=== PATIENT | female | born 1985 | race African-American/Black ===

== ENCOUNTER 2021-05-07 07:42 | Emergency (ER) | payer MEDICAID ==
[~2021-05-07] VITALS: Ht 152.4 cm; Wt 65.0 kg
[2021-05-07 07:55] VITALS: BP 158/101
[2021-05-07] MEDS ORDERED: IV NORMAL SALINE 1000ML BAG 1,000 ML IV ONE (08:30)
--- NOTE | 2021-05-07 08:47 | PHYS DOC ---
Past Medical History Additional Past Medical Histor: PTSD, ADHD Past Surgical History: Other Additional Past Surgical Histo: denies General Adult EDM: Chief Complaint: COUGH HPI: HPI: 36-year-old female past medical history of ADHD and PTSD, presents to the ED with complaints of difficulties breathing, shortness of breath, body aches, fatigue, sore throat and cough, stating she was diagnosed with bronchitis at [facility] 5 days ago and is on antibiotics (cannot recall name). Patient is not a tobacco smoker. Review of Systems: Review of Systems: Constitutional: Denies fever or chills. [] Eyes: Denies change in visual acuity. [] HENT: Denies nasal congestion or rhinorrhea Respiratory: Denies hemoptysis or increased work of breathing Cardiovascular: Denies chest pain or edema. [] GI: Denies abdominal pain, nausea, vomiting, bloody stools or diarrhea. [] : Denies dysuria or vaginal bleeding Musculoskeletal: Denies back pain or joint pain. [] Integument: Denies rash or diaphoresis Neurologic: Denies headache, focal weakness or sensory changes. [] Endocrine: Denies polyuria or polydipsia. [] Lymphatic: Denies swollen glands. [] Psychiatric: Denies depression or anxiety. [] Heart Score: C/O Chest Pain: No Risk Factors: Risk Factors: DM, Current or recent (<one month) smoker, HTN, HLP, family history of CAD, obesity. Risk Scores: Score 0 - 3: 2.5% MACE over next 6 weeks - Discharge Home Score 4 - 6: 20.3% MACE over next 6 weeks - Admit for Clinical Observation Score 7 - 10: 72.7% MACE over next 6 weeks - Early Invasive Strategies Current Medications: Current Medications Medications (Trade) Dose Ordered Sig/Cisco Start Time Stop Time Status Last Admin Dose Admin Sodium Chloride 1,000 ml @ 1,000 mls/hr 1X ONCE 05/07/21 08:30 05/07/21 09:29 Allergies: Allergies: Allergies Coded Allergies Type Severity Reaction Last Updated Verified No Known Drug Allergies 05/07/21 No Physical Exam: PE: Constitutional: Well developed, well nourished, non-toxic but flu appearing, hypertensive HENT: Normocephalic, atraumatic, nasal voice Eyes: EOMI, conjunctiva normal, no discharge. Neck: Normal range of motion, supple, no nuchal rigidity or meningismus Cardiovascular: S1/2 present, regular rhythm Lungs & Thorax: Speaking in full sentences, bilateral equal chest rise, no tachypnea or increased work of breathing, dry cough in ed Abdomen: soft, no tenderness, Skin: Warm, dry, no erythema, no rash. [] Back: No tenderness, no CVA tenderness. [] Extremities: No tenderness, no cyanosis, no lower extremity edema Neurologic: Alert and oriented X 3, normal motor function, normal sensory function, no focal deficits noted. [] Psychologic: Affect normal, judgement normal, mood normal. [] Current Patient Data: Vital Signs: Vital Signs Date Time Temp Pulse Resp B/P (MAP) Pulse Ox O2 Delivery O2 Flow Rate FiO2 05/07/21 07:55 98.4 88 18 158/101 98 Room Air 98.4 EKG: EKG: [] Radiology/Procedures: Radiology/Procedures: []IMAGING REPORT Signed PATIENT: IGNACIO FERNANDEZCCOUNT: [id number] : 1985 LOCATION: ER AGE: 36 SEX: F EXAM STATUS: DEP ER ORD. PHYSICIAN: DOUGLAS TREVINO DO REASON: cough, weakness, leg swelling PROCEDURE: PORTABLE CHEST 1V AP chest. HISTORY: Cough, wheezing AP view was taken of the chest. Lungs are free of infiltrates. Heart is normal in size. There is no pleural effusion. IMPRESSION: 1. No acute infiltrates. Electronically signed by: Michael Beauchamp MD (05/07/2021 8:46 AM) [id number] DICTATED and SIGNED BY: MICHAEL BEAUCHAMP MD DATE: 05/07/21 [id number] Impression: PERC rule 0 criteria No need for further workup, as <2% chance of PE. If no criteria are positive and clinicians pre-test probability is <15%, PERC Rule criteria are satisfied. Course & Med Decision Making: Course & Med Decision Making Pertinent Labs and Imaging studies reviewed. (See chart for details) COVID-19 CRITERIA: The patient was evaluated during the global COVID-19 pandemic, and that diagnosis was suspected/considered upon their initial presentation. Their evaluation, treatment and testing was consistent with current guidelines for patients who present with complaints or symptoms that may be related to COVID-19. Concern for upper respiratory infection. Pt refusing covid test. Pt very rude to myself, nurse and x-ray electromyographic technician. Refusing to wear her face mask per hospital policy-is very argumentative about this and was initially refusing vital signs. Requests to to see her xray films and that I read them immediately-pt distracting from pt care and walking out of her room without a mask. Pt states "there's nothing you can do for me, I won't let you check me for covid." I educated pt on how I want to evaluate her for a life-threatening pulmonary embol us or sepsis. I educated and recommended patient to stay in the ED for further testing that we are trying to help her/give her the best standard of care, that her initial covid test could be a false positive. Pt is not suicidal, is not a danger to herself and has medical decision making capacity. Myself, RN and charge nurse unable to convince patient to stay in the ED for further testing. Pt refused to wait for discharge papers. The patient has decided to leave our facility against medical advice. I have assessed patient's ability to make informed decision and feel the patient has the capacity to comprehend information regarding the current medical condition and appreciates the impact of the disease or condition and the consequences of various options for treatment, including foregoing treatment. The patient possesses the ability to evaluate all treatment options, comparing the risks and benefits of each option, communicate his or her choice in a consistent manner over time, and is able to make rational choices. I explained to the patient further testing, treatment, and evaluation I would like to perform in the emergency department visit as well as any possible alternatives that can be accomplished in a timely manner. I have outlined the possible risks of foregoing any or all of these interventions and the patient understands and acknowledges that the decision to leave may result in undesirable consequences such as , permanent disability, and/or loss of current lifestyle. Even though leaving AMA is not ideal, I have instructed the patient to follow any discharge instructions given, take any medications prescribed, and resume care as soon as possible with another provider. This conversation was witnessed by another member of the emergency department staff and we clearly communicated the patient is welcome to return anytime to continue care at our facility. Yung Disclaimer: Yung Disclaimer: This electronic medical record was generated, in whole or in part, using a voice recognition dictation system. Departure Departure Impression: Primary Impression: Person under investigation for COVID-19 Additional Impressions: URI (upper respiratory infection) Left against medical advice Disposition: 07 LEFT AGAINST MEDICAL ADVICE Condition: STABLE Referrals: NO PCP (PCP) Follow-up with your primary care physician in 24 to 48 hours OR FOLLOW UP WITH FAMILY MEDICINE: [address], [address] [place] [address] Patient Instructions: Discharge Against Medical Advice, Upper Respiratory Infection, Adult Additional Instructions: Return to ED immediately if your oxygen level drops below 90% (purchase a pulse oximetry at a medical supply store), difficulties breathing including rapid breathing or increased work of breathing (skin sucking under ribs), chest pain or stroke-like symptoms (facial droop, speech changes, arm/leg weakness). You have been tested for or diagnosed with COVID-19. It is an infection caused by a new type of coronavirus. COVID-19 will cause cold-like or mild flu symptoms in most. It can cause more severe symptoms like problems breathing in some. There is no treatment for COVID-19. The body will clear the infection over time. Self-care will help to ease discomfort. Steps to Take: Self-Care Rest as needed. Healthy habits may help you feel better. Steps include: Choose healthy foods including fruits and vegetables. Drink water throughout the day. Get plenty of sleep each night. If you smoke, try to quit. It may ease breathing. Avoid alcohol. Keep Others Healthy The virus can spread to others. Droplets are released every time you sneeze or cough. The droplets can get into the mouth, nose, or eyes of people near you and lead to infection. To lower the chances of spreading COVID-19 to others: Stay at home until your doctor has said it is safe to leave. If you tested positive this will mean staying isolated until both of the following are true: At least 7 days have passed since the start of illness. You are free of fever for at least 72 hours without the use of medicine. During this time: - Avoid public areas, events, or transportation. Do not return to work or school until your doctor has said it is safe to do so. - Call ahead if you need to go to a medical center. Let them know you may have COVID-19. It will help them guide you where to go. They may also ask you to wear a facemask when you come to the office. - If you call for emergency medical services, let them know you may have COVID- 19. While at home: - Try to avoid close contact with others. Stay about 6 feet away. - If possible, spend most of your time in a separate room from others. - Use a face mask if you will be in close contact with others such as sharing a room or vehicle. - Have someone wipe down common surfaces in the home. Use household hydraulic miner every day on areas like doorknobs, counters, or sinks. - Cough or sneeze into a tissue. Throw the tissue away right after use. If a tissue is not available, cough or sneeze into your elbow. - Wash your hands often. Wash them after sneezing or coughing. Use soap and jatinder er and wash for at least 20 seconds. Alcohol based hand auto cleaner can be used if soap and water is not available. - Do not prepare food for others. Avoid sharing personal items like forks, spoons, or toothbrushes. - Avoid close contact with pets while you are sick. There is no evidence of the virus passing to pets. This is a safety step until more is known about this virus. Isolation can be frustrating. Social interaction can help. Keep in touch with friends and family through phone and tech options. You can still interact with others in your home, just keep a safe distance of about 6 feet. Follow-up: Your doctors office will check in with you to see if there are any changes in your health. You may be asked to keep track of symptoms to share with them. They will also let you know when you are clear to be in public again. Problems to Look Out For: Contact your doctor if your recovery is not going as you expect. Get emergency care if you have problems such as: - Trouble breathing - Nonstop chest pain or pressure - Changes in awareness, confusion, or problems waking - Lips or face have bluish color - Worsening of symptoms If you think you have an emergency, call for emergency medical services right away. As taken from [facility],DOUGLAS Rasheed DO May 07, 2021 08:47
--- NOTE | 2021-05-07 08:48 | RAD ---
AP chest. HISTORY: Cough, wheezing AP view was taken of the chest. Lungs are free of infiltrates. Heart is normal in size. There is no p leural effusion. IMPRESSION: 1. No acute infiltrates. Electronically signed by: Michael Beauchamp MD (05/07/2021 8:46 AM) [id number]
== END 2021-05-07 08:42 | disposition left against medical advice (07) ==
LOC: ER 07:42
DX: J06.9 Acute upper respiratory infection, unspecified (principal); F90.9 Attention-deficit hyperactivity disorder, unspecified type; F43.10 Post-traumatic stress disorder, unspecified
CPT/HCPCS: 71045; 99283

== ENCOUNTER 2021-12-14 18:47 | Emergency (ER) | payer MEDICAID ==
[~2021-12-14] VITALS: Ht 152.4 cm; Wt 64.0 kg
[2021-12-14 18:58] VITALS: BP 146/84
[2021-12-14] MEDS ORDERED: KETO5DRO4 EACHEYE (19:21)
[2021-12-14] MEDS ORDERED: CETI10TA74 PO (19:21)
--- NOTE | 2021-12-14 19:21 | PHYS DOC ---
Past Medical History Additional Past Medical Histor: PTSD, ADHD Past Surgical History: Other Additional Past Surgical Histo: denies General Adult EDM: Chief Complaint: EYE PROBLEMS HPI: HPI: Patient is a 36 year old female who presents to the ED today with left upper eyelid swelling and clear drainage, symptoms began this morning. Patient denies any injuries. Denies any pain or vision loss. Denies any redness. She states the right eye has started swelling as well and was having clear drainage at this afternoon Review of Systems: Review of Systems: Constitutional: Denies fever or chills. [] Eyes: Reports left upper eyelid swelling denies change in visual acuity. [] Musculoskeletal: Denies back pain or joint pain. [] Integument: Denies rash. [] Neurologic: Denies headache, focal weakness or sensory changes. [] Psychiatric: Denies depression or anxiety. [] Heart Score: C/O Chest Pain: N/A Risk Factors: Risk Factors: DM, Current or recent (<one month) smoker, HTN, HLP, family history of CAD, obesity. Risk Scores: Score 0 - 3: 2.5% MACE over next 6 weeks - Discharge Home Score 4 - 6: 20.3% MACE over next 6 weeks - Admit for Clinical Observation Score 7 - 10: 72.7% MACE over next 6 weeks - Early Invasive Strategies Allergies: Allergies: Allergies Coded Allergies Type Severity Reaction Last Updated Verified No Known Drug Allergies 05/07/21 No Physical Exam: PE: Constitutional: Well developed, well nourished, no acute distress, non-toxic appearance. [] HENT: Normocephalic, atraumatic, bilateral external ears normal, oropharynx moist, no oral exudates, nose normal. Eyes: Left upper eyelid with trace superficial swelling, PERRLA, EOMI, conjunctiva normal, no discharge. Right eye appears normal. Skin: Warm, dry, no erythema, no rash. [] Back: No tenderness, no CVA tenderness. [] Extremities: No tenderness, no cyanosis, no clubbing, ROM intact, no edema. [] Neurologic: Alert and oriented X 3, normal motor function, normal sensory function, no focal deficits noted. [] Psychologic: Affect normal, judgement normal, mood normal. [] Current Patient Data: Vital Signs: Vital Signs Date Time Temp Pulse Resp B/P (MAP) Pulse Ox O2 Delivery O2 Flow Rate FiO2 12/14/21 18:58 98.0 98 18 146/84 (104) 98 Room Air 98.0 EKG: EKG: [] Radiology/Procedures: Radiology/Procedures: [] Course & Med Decision Making: Course & Med Decision Making Pertinent Labs and Imaging studies reviewed. (See chart for details) This a 36-year-old with allergic conjunctivitis to bilateral eyes. Discharged with Zyrtec and Zaditor eyedrops. Follow-up with PCP in 1 to 2 weeks or an screen roller if symptoms persist Dragon Disclaimer: Dragon Disclaimer: This electronic medical record was generated, in whole or in part, using a voice recognition dictation system. Departure Departure Impression: Primary Impression: Allergic conjunctivitis, acute Qualified Codes: H10.13 - Acute atopic conjunctivitis, bilateral Disposition: HOME / SELF CARE / HOMELESS Condition: STABLE Referrals: NO PCP (PCP) JAKUB DURAN MD follow up in 1-2 weeks Patient Instructions: Allergic Conjunctivitis, [id number] Additional Instructions: You were seen in the emergency room for allergic conjunctivitis, please use the prescribed medications as ordered. Follow-up with your primary care doctor in 1 to 2 weeks. You can also see the provided eyeglass maker in 1 to 2 weeks Scripts Cetirizine Hcl (ZYRTEC) 10 Mg Tablet 1 TAB PO DAILY, #30 TAB 2 Refills Prov: NICOLÁS BORREGO APRN 12/14/21 Ketotifen Fumarate (ZADITOR) 5 Ml Drops 1 DROP EACHEYE BID, #5 ML 1 Refill Prov: NICOLÁS BORREGO APRN 12/14/21 NICOLÁS BORREGO APRN Dec 14, 2021 19:21
== END 2021-12-14 19:47 | disposition home or self-care (01) ==
LOC: ER 18:47
DX: H10.13 Acute atopic conjunctivitis, bilateral (principal); F90.9 Attention-deficit hyperactivity disorder, unspecified type; F43.10 Post-traumatic stress disorder, unspecified
CPT/HCPCS: 99282